=== PATIENT | male | born 1995 | race Caucasian/White ===

== ENCOUNTER 2019-09-12 23:32 | Emergency (ER) | payer OTHER ==
[~2019-09-12] VITALS: Ht 188 cm; Wt 95.5 kg
[2019-09-12 23:54] VITALS: BP 143/80; TEMP 98.4
[2019-09-13 03:00] VITALS: PULSE 64
== END 2019-09-13 03:00 | disposition home or self-care (01) ==
LOC: COL.ER 23:32
DX: R05 Cough (principal); F17.210 Nicotine dependence, cigarettes, uncomplicated